=== PATIENT | male | born 1955 | race Caucasian/White ===

== ENCOUNTER → 2023-10-10 07:41 | Outpatient (CLI) | payer MEDICARE, MEDICAID, SELFPAY ==
--- NOTE | 2023-10-10 07:41 | CA_ITS ---
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 Echo Enhancing Agent Comments: Extremely limited exam due to lung impedance with altered cardiac seating 2D Dimensions IVSd 1.39 cm M: 0.6-1.2 LVEF (Visual) 58.10 % PWd 1.25 cm M: 0.6 - 1.2 LA Volume 78.20 mL LVDd 4.37 cm M: 4.2 - 5.9 LA Volume Index 32.86 mL/m2 (M/F) 16-34 LVDs 3.04 cm M: 2.5 - 4.0 EF AP4 57.90 % GL Strain -23.4 % M-Mode Dimensions RVDd 3.61 cm (0.9-2.6) LA Diam 4.69 cm (1.9-4.0) LVDd 6.08 cm (3.5-5.7) LVDs 4.46 cm (3.5-5.7) IVSd 1.23 cm (0.6-1.1) PWd 1.15 cm (0.6-1.1) EF (Teich) 51.20% EPSs 1.38 cm FS 26.60% EDV (Teich) 185.50 mL TAPSE 1.69 (<1.7) ESV (Teich) 90.50 mL LV Diastology E Decel Time 173 (160-240 msec) E/A Ratio 0.96 MED A' 10.50 cm/s LAT A' 13.40 cm/s Aortic Valve ABAD Index 1.37 cm2/m2 AoV Peak Acosta. 158.0 (50-130 cm/s) AO Peak GR. 10.00 mmHg AO Mean GR. 5.00 (<5 mmHg) AO VTI 28.0 (18-25 cm) ABAD (VTI) 3.32 (2.5-4.5 cm2) Mitral Valve MV A Velocity 93.0 (40-130 cm/s) E/A Ratio 0.96 Left Ventricle The left ventricle is normal size. The left ventricular systolic function is normal. The left ventricular ejection fraction is within the normal range. There is increased LV wall thickness. There is normal LV segmental wall motion. Diastolic function cannot be determined due to technically limited study. LVEF is 55%. Right Ventricle The right ventricle is very well-visualized, but is grossly normal in size and function. Atria The left atrium size is normal. The right atrium size is normal. The interatrial septum is not well-visualized. Aortic Valve The aortic valve is mildly thickened. There is no aortic valvular stenosis. Trace aortic regurgitation. Mitral Valve Mitral valve leaflets are mildly thickened. The mitral valve opens well. Mitral regurgitation cannot be determined due to technically limited study. Tricuspid Valve The tricuspid valve is not well-visualized. Trace tricuspid regurgitation. There is insufficient TR jet to estimate RVSP. Pulmonic Valve The pulmonic valve is not well-visualized. Great Vessels The aortic root and the ascending aorta are not well-visualized. The IVC is not well-visualized. Pericardium There is a small sized, anterior pericardial effusion. The largest pocket measures approximately 0.5 cm in diastole. There are no clear echo indications of tamponade. Other Information Study Quality: Technically Difficult. Technically limited study due to lung disease. Conclusion Difficult and limited study due to poor acoustic windows and significant lung disease. Grossly, normal biventricular systolic function. No significant valvular stenosis or regurgitation in the visualized valves. Small, anterior pericardial effusion, measuring approximately 0.5 cm in diastole. No echo indications of tamponade. Electronically signed by : Ute Ha MD 10/14/2023 19:30:03
[2023-10-10 08:45] VITALS: PULSE 77; PULSE 80
--- NOTE | 2023-10-10 10:03 | CT_ITS ---
FINAL REPORT TECHNIQUE: Axial images were obtained from the lung apex to the mid abdomen by computed tomography. Coronal reformatted images were obtained. This study was performed with techniques to keep radiation doses as low as reasonably achievable, (ALARA). Individualized dose reduction techniques using automated exposure control or adjustment of mA and/or kV according to the patient''s size were employed. CLINICAL HISTORY: COPD COMPARISON: None FINDINGS: There is no axillary adenopathy. There is a 40 x 29 mm mass in the posterior right hilar region of uncertain etiology which may represent postoperative change or possible adenopathy. Heart size is normal. There is evidence of prior median sternotomy. There is no pericardial or pleural effusion. There are postoperative changes from right pneumonectomy with right pleural thickening. There is moderate emphysema in the left lung. There is chronic right chest wall deformity. Limited images of the upper abdomen demonstrate postoperative changes. There are multiple benign renal masses which cannot be accurately characterized without contrast but may represent a combination of simple cysts and hyperdense cysts. 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 Postcholecystectomy. IMPRESSION: Posterior right hilar mass of uncertain etiology, may represent postoperative change or possible adenopathy. Multiple bilateral renal masses, likely combination of simple and hyperdense cysts. Other chronic changes as above. Reviewed, Interpreted and Dictated by Gerry Garcia III, MD Transcribed by Isidra Samano Authenticated and [facility]
[2023-10-10 12:17] LABS: ABG Base Excess -0.4 mmol/L (-2.4-2.3); ABG HCO3 24.3 mmhg (22.0-26.0); ABG Oxygen Saturation 95 % (90-100); ABG PO2 69.6 mmhg (80-100); ABG TCO2 25.6 mmhg (23-27)
[2023-10-10 12:25] LABS: Allen's Test Acceptable; Oxygen 36% %; Source Right Radial
== END ==
PROVIDERS: PCP Nurse Practitioner Family; Visit Provider Internal Medicine Pulmonary Disease
DX: R06.02 Shortness of breath (principal); R06.09 Other forms of dyspnea; R91.8 Other nonspecific abnormal finding of lung field
CPT/HCPCS: 71250; 82803; 93306; 94060; 94618; 94640; 94726; 94729

== ENCOUNTER 2023-11-16 11:15 | Outpatient (CLI) | payer MEDICARE, MEDICAID, SELFPAY ==
--- NOTE | 2023-11-16 11:20 | XR_ITS ---
FINAL REPORT CLINICAL HISTORY: Shortness of breath, COUGH HX OF LUNG SURGERY DUE TO HISTOPLASMOSIS COMPARISON: None FINDINGS: Two views of the chest were obtained. The heart size and pulmonary vascularity are within normal limits. Prior median sternotomy. Postoperative change of the right thorax. There is near total opacification of the right thorax. No acute abnormality of the left lung. There is no pneumothorax. The bony thorax is intact. IMPRESSION: Near total opacification of the right thorax. Reviewed, Interpreted and Dictated by Gerry Garcia III, MD Transcribed by Isidra Samano Authenticated and [facility]
== END 2023-11-16 23:59 ==
PROVIDERS: PCP Nurse Practitioner Family; Visit Provider Internal Medicine Pulmonary Disease
DX: R06.02 Shortness of breath (principal); R05.9 Cough, unspecified; B39.2 Pulmonary histoplasmosis capsulati, unspecified
CPT/HCPCS: 71046; 87070; 87205

== ENCOUNTER 2024-06-02 15:45 | Outpatient (CLI) | payer MEDICARE, MEDICAID, SELFPAY | END 2024-06-02 23:59 | disposition home or self-care (01) | LOC: LAB.DROPOF 15:46 | PROVIDERS: PCP Urology; Visit Provider Urology | DX: N28.1 Cyst of kidney, acquired (principal) | CPT/HCPCS: 87086 ==

== ENCOUNTER 2024-07-01 09:37 | Outpatient (CLI) | payer MEDICARE, MEDICAID, SELFPAY ==
--- NOTE | 2024-07-01 09:37 | CT_ITS ---
FINAL REPORT TECHNIQUE: After the administration of intravenous contrast, axial images were obtained through the abdomen and pelvis by computed tomography. The study was performed with techniques to keep radiation dose as low as reasonably achievable, (ALARA). Individual dose reduction techniques using automated exposure control or adjustment of mA and/or kV according to the patient's size were employed. CLINICAL HISTORY: Bilateral renal masses COMPARISON: CT chest 10/10/2023 FINDINGS: Abdomen: There is redemonstration of marked volume loss in the right hemithorax consistent with prior pneumonectomy. Pleural thickening is noted. The left lung is clear. There is fatty infiltration of the liver. The gallbladder is surgically absent. Multiple splenules are noted. The pancreas and adrenals appear unremarkable. There is a multitude of exophytic intermediate and high attenuation structures arising from both kidneys. The dominant focus in the posterior right kidney demonstrates a mean attenuation value of 47 Hounsfield units. There is no abnormal enhancement on the infused or delayed images. Similarly, there is a focus in the medial upper right kidney demonstrating mean attenuation value of 61 Hounsfield units without evidence of abnormal enhancement. The aorta is normal in caliber. There is no free fluid or adenopathy. Pelvis: The appendix is unremarkable. The urinary bladder is incompletely distended. Calcified phleboliths are noted in the floor the pelvis. There is no free fluid or adenopathy. IMPRESSION: Intermediate and high attenuation structures in the bilateral kidneys are consistent with complex benign cysts. Reviewed, Interpreted and Dictated by Jose L Hernández MD Transcribed by Isidra Samano Authenticated and [facility]
[2024-07-01 10:34] LABS: Blood Urea Nitrogen 24 mg/dl (9-20); Estimated Glomerular Filt Rate 61 ml/min (>60); GFR (African American) 73 ML/MIN (>60)
[2024-07-01] MEDS: SODIUM CHLORIDE 0.9% 10ML SYR (RAD ONLY) 10 ML IV (10:50)
[2024-07-01] MEDS: IOPAMIDOL-370 (76%);100ML BOTTLE 75 ML IV (10:51)
[2024-07-02 14:16] LABS: PSA, Free 0.31 ng/mL; Prostate Specific Ag 0.9 ng/mL (0.0-4.0)
== END 2024-07-01 23:59 | disposition home or self-care (01) ==
LOC: RAD 09:37
PROVIDERS: PCP Nurse Practitioner Family; Visit Provider Urology
DX: R93.429 Abnormal radiologic findings on diagnostic imaging of unspecified kidney (principal); R33.9 Retention of urine, unspecified
CPT/HCPCS: 36415; 74177; 82565; 84153; 84154; 84520; Q9967

== ENCOUNTER 2024-07-18 09:07 | Day surgery (SDC) | payer MEDICARE, MEDICAID, SELFPAY ==
[2024-07-17 08:33] VITALS: BMI 30.9
[2024-07-18 09:26] VITALS: BP 162/72; PULSE 87; RESP 20; TEMP 36.2; O2SAT 96
[2024-07-18 09:38] LABS: POC Glucose,Bedside 127 (70-110)
[2024-07-18] MEDS: LIDOCAINE 2% UROJET 10ML 10 ML (09:46)
[2024-07-18] MEDS: 0.9 % SODIUM CHLORIDE 1000ML 1,000 ML 25 ML IV (09:46)
--- NOTE | 2024-07-18 09:51 | [facility].PROCNOTE ---
[facility] Procedure Note Date: 07/18/24 Time: 09:51 Procedure Note:: Chart review: Patient on intermittent catheterization at home. He is here for cystoscopy to see if he has prostate obstruction for consideration of prostate surgery. However the patient has grade 1 prostate obstruction. He is diabetic and has history of back issues. Therefore he very well may have a neurogenic component to his incomplete emptying of the bladder Preop diagnosis: Urinary retention Postop diagnosis: Urinary retention, consideration of neurogenic bladder Operative note: The patient was brought to the cystoscopy suite. He is prepped and draped in the standard fashion. The anterior urethra is unremarkable. From the level of the verumontanum the patient has grade 1 prostate obstruction. The bladder is free of heavy trabeculation throughout. There is no evidence of bladder stone tumor hemorrhage or infection. The ureteral orifice ease are normal.
[2024-07-18 09:52] VITALS: BP 163/89; PULSE 77; RESP 16; TEMP 36.4; O2SAT 99
== END 2024-07-18 10:05 | disposition home or self-care (01) ==
PROVIDERS: PCP Nurse Practitioner Family; Visit Provider Urology
PROC: 0TJB8ZZ Inspection of Bladder, Via Natural or Artificial Opening Endoscopic (ICD-10-PCS; CPT 52000; principal; 2024-07-18 09:45)
DX: R33.9 Retention of urine, unspecified (principal); N31.9 Neuromuscular dysfunction of bladder, unspecified; N40.0 Benign prostatic hyperplasia without lower urinary tract symptoms
CPT/HCPCS: 52000; 82962; J7030

== ENCOUNTER 2024-08-19 12:35 | Outpatient (CLI) | payer MEDICARE, MEDICAID, SELFPAY ==
--- NOTE | 2024-08-19 12:36 | CT_ITS ---
FINAL REPORT CLINICAL HISTORY: 6-month follow-up lung nodules right sided chest pain, copd, emphysema COMPARISON: 10/10/2023 FINDINGS: CT CHEST WITH CONTRAST TECHNIQUE: After the administration of intravenous contrast, axial images through the chest were performed by computed tomography. This study was performed with techniques to keep radiation doses as low as reasonably achievable, (ALARA). Individualized dose reduction techniques using automated exposure control or adjustment of mA and/or kV according to the patient's size were employed. FINDINGS: There are postoperative changes from prior right pneumonectomy. Mediastinal structures are shifted to the right. There is no axillary adenopathy. There is no hilar or mediastinal adenopathy. The heart size is normal. There is no pericardial or pleural effusion. There is hyperinflation of the left lung. There are advanced changes of centrilobular emphysema throughout the left upper lobe. There is a mass like density posterior to the right hilum measuring 3.5 x 2.7 cm. This appears entirely stable compared to the prior exam. There is pleural thickening and a small amount of loculated fluid in the right hemithorax. Limited images of the upper abdomen demonstrate multiple exophytic structures arising from both kidneys measuring up to 2.3 cm. The cysts demonstrate a mean attenuation value of 43 Hounsfield units. These appear stable compared to the prior exam and are consistent with multiple complex cyst. The spleen is absent. Multiple splenules are seen in the left upper quadrant. IMPRESSION: Changes from prior right pneumonectomy. Mass posterior to the right hilum is stable. Stable, partially exophytic, densities in both kidneys probably due to complex benign cysts. Reviewed, Interpreted and Dictated by Jose L Hernández MD Transcribed by Jaci Siegel Authenticated and [facility]
== END 2024-08-19 23:59 | disposition home or self-care (01) ==
LOC: RAD 12:36
PROVIDERS: PCP Nurse Practitioner Family; Visit Provider Internal Medicine Pulmonary Disease
DX: R91.8 Other nonspecific abnormal finding of lung field (principal)
CPT/HCPCS: 71250